=== PATIENT | male | born 1990 | race Caucasian/White ===

== ENCOUNTER 2016-11-03 17:48 | Emergency (ER) | payer OTHER ==
[~2016-11-03] VITALS: Ht 175.3 cm; Wt 92.1 kg
[2016-11-03 18:23] VITALS: BP 136/95
== END 2016-11-03 18:23 | disposition home or self-care (01) ==
LOC: ED 17:48
DX: S05.01XA Injury of conjunctiva and corneal abrasion without foreign body, right eye, initial encounter (principal); H10.9 Unspecified conjunctivitis; X58.XXXA Exposure to other specified factors, initial encounter; Y93.89 Activity, other specified; Y99.8 Other external cause status; Y92.89 Other specified places as the place of occurrence of the external cause

== ENCOUNTER 2018-02-12 20:52 | Emergency (ER) | payer OTHER ==
[~2018-02-12] VITALS: Ht 175.3 cm; Wt 92.1 kg
[2018-02-12 21:03] VITALS: Ht 175.3 cm; Wt 92.1 kg
[2018-02-12 23:17] LABS: ALBUMIN 3.6 g/dL (3.4-5.0); ALKALINE PHOSPHATASE 109 U/L (46-116); ALT/SGPT 44 U/L (16-63); AMYLASE 50 U/L (25-115); AST/SGOT 22 U/L (15-37); BILIRUBIN TOTAL 0.8 mg/dL (0.20-1.00); CALCIUM 8.8 mg/dL (8.5-10.1); CARBON DIOXIDE 25.1 mmol/L (21-32); CHLORIDE SERUM 104 mmol/L (98-107); CREATININE SERUM 1.1 mg/dL (0.7-1.3); GFR1 > 60 mL/min; GLUCOSE SERUM 110 mg/dL (74-106); LIPASE 112 IU/L (73-393); POTASSIUM SERUM 3.8 mmol/L (3.5-5.1); SODIUM SERUM 141 mmol/L (136-145); TOTAL PROTEIN, SERUM 7.4 g/dL (6.4-8.2)
[2018-02-12 23:18] LABS: BASOPHIL % 0.5 % (0-2); PLATELET COUNT 280 x10^3mcL (130-400); RED CELL DISTRIBUTION WIDTH 13.1 % (11.5-14.5)
[2018-02-12 23:25] LABS: UA SPECIFIC GRAVITY 1.025 (1.005-1.035); microscopic required? YES; urine erythrocyte 3+ (NEGATIVE)
[2018-02-13 00:21] VITALS: BP 113/73
== END 2018-02-13 00:23 | disposition home or self-care (01) ==
LOC: ED 20:52
PROVIDERS: Emergency Medicine
DX: N12 Tubulo-interstitial nephritis, not specified as acute or chronic (principal)
CPT/HCPCS: J0696; J1885; J2405

== ENCOUNTER 2019-10-07 02:27 | Emergency (ER) | payer OTHER ==
[~2019-10-07] VITALS: Ht 177.8 cm; Wt 90.7 kg
[2019-10-07 02:35] VITALS: Ht 177.8 cm; Wt 90.7 kg
[2019-10-07 02:58] VITALS: BP 124/74
== END 2019-10-07 02:59 | disposition other institution (70) ==
LOC: ED 02:27
DX: Z02.89 Encounter for other administrative examinations (principal)